=== PATIENT | female | born 1960 | race Two or more races ===

== ENCOUNTER 2017-01-11 18:28 | Inpatient (IN) | payer OTHER ==
[~2017-01-11] VITALS: Ht 157.5 cm; Wt 76.0 kg
[2017-01-11] MEDS ORDERED: PANT20TA2 PO (18:49)
[2017-01-11] MEDS ORDERED: SODIUM CHLORIDE FLUSH 10ML SYR IVF ONE (19:00)
[2017-01-11] MEDS ORDERED: SODIUM CHLORIDE 0.9% 1,000ML IVBOLUS ONE ×2 (19:00→20:00)
[2017-01-11] MEDS ORDERED: PLEASE ENTER HEIGHT AND WEIGHT MC SCH (19:00)
[2017-01-11] MEDS ORDERED: PLEASE ENTER ALLERGIES MC SCH ×2 (19:00)
[2017-01-11 19:21] LABS: BLOOD UREA NITROGEN 19 mg/dL (7-18)
[2017-01-11] MEDS ORDERED: POTASSIUM CHLORIDE 20 MEQ TAB.ER.PRT ONE (19:58)
[2017-01-11] MEDS ORDERED: POTASSIUM CHLORIDE 20 MEQ TAB.ER.PRT PO ONE ×2 (20:00→23:45)
[2017-01-11 20:25] LABS: IS PT STATUS REG ER OR PRE ER? YES
[2017-01-11] MEDS ORDERED: ASPIRIN 81 MG TABLET CHEW ONE (20:51)
[2017-01-11] MEDS ORDERED: ASPIRIN 81 MG TABLET CHEW PO ONE (21:00)
[2017-01-11 23:42] VITALS: BP 122/80
[2017-01-11] MEDS ORDERED: NS + 20MEQ KCL 1,000 ML IV SCH (23:42)
[2017-01-12] MEDS ORDERED: ENOXAPARIN 40 MG/0.4 ML SQ SCH
[2017-01-12] MEDS: SODIUM CHLORIDE 0.9% 1,000 ML IV SCH ×2 (00:54→12:36)
[2017-01-12 01:02] LABS: IS PT STATUS REG ER OR PRE ER? NO
[2017-01-12 01:53] LABS: DAU SCREEN DISCLAIMER
[2017-01-12 02:07] LABS: PATH.CAST-FLAG NOT PRESENT; SPERM-FLAG NOT PRESENT; SRC-FLAG NOT PRESENT; XTAL-FLAG NOT PRESENT; YLC-FLAG NOT PRESENT
[2017-01-12 02:37] VITALS: BP 120/77
[2017-01-12] MEDS ORDERED: ASPIRIN 325 MG TABLET EC PO SCH (06:00)
[2017-01-12 06:14] LABS: IS PT STATUS REG ER OR PRE ER? NO
[2017-01-12 07:12] VITALS: BP 121/76
[2017-01-12] MEDS ORDERED: PANTOPRAZOLE 20MG TABLET PO SCH ×2 (09:00)
[2017-01-12] MEDS ORDERED: REGADENOSON 0.4 MG/5 ML SYRINGE ONE (10:44)
[2017-01-12 15:05] VITALS: BP 122/79
[2017-01-13] MEDS ORDERED: PANTOPRAZOLE 20MG TABLET PO SCH (08:00)
== END 2017-01-12 16:54 | disposition home or self-care (01) | DRG 640 ==
LOC: ED 22:16 → EDIP 22:20 → 5SO 23:25
PROVIDERS: ADMIT Internal Medicine; ATTEND Internal Medicine
DX: E86.0 Dehydration (principal); N17.0 Acute kidney failure with tubular necrosis; K21.9 Gastro-esophageal reflux disease without esophagitis; Z83.3 Family history of diabetes mellitus; Z82.49 Family history of ischemic heart disease and other diseases of the circulatory system; I44.7 Left bundle-branch block, unspecified; D72.829 Elevated white blood cell count, unspecified; I95.9 Hypotension, unspecified; Z87.19 Personal history of other diseases of the digestive system; Z80.0 Family history of malignant neoplasm of digestive organs; Z88.2 Allergy status to sulfonamides
CPT/HCPCS: 36415; 71010; 78452; 80048; 80307; 81001; 82040; 83735; 84443; 84484; 85025; 87086; 93005; 93017; 93306; 96360; J1650; J2785; A9502; C9898; J7030